=== PATIENT | male | born 1950 | race Caucasian/White ===

== ENCOUNTER 2016-11-21 11:33 | Inpatient (IN) | payer SELFPAY ==
[~2016-11-21] VITALS: Ht 185.4 cm; Wt 61.5 kg
[2016-11-21] MEDS ORDERED: methylPREDNISolone SOD SUCC 125 MG/2 ML IVP ONE (12:30)
[2016-11-21] MEDS ORDERED: ALBUTEROL/IPRATROPIUM 2.5MG/0.5MG, 3 ML NPPB ONE (12:30)
[2016-11-21] MEDS ORDERED: SODIUM CHLORIDE FLUSH 10ML SYR IVF ONE (12:30)
[2016-11-21] MEDS ORDERED: ALBUTEROL/IPRATROPIUM 2.5MG/0.5MG, 3 ML ONE (12:35)
[2016-11-21 12:45] LABS: BLOOD UREA NITROGEN 13 mg/dL (7-18)
[2016-11-21 12:58] LABS: IS PT STATUS REG ER OR PRE ER? YES
[2016-11-21] MEDS ORDERED: methylPREDNISolone SOD SUCC 125 MG/2 ML ONE (13:23)
[2016-11-21] MEDS ORDERED: SODIUM CHLORIDE 0.9% 1,000 ML IV ONE (13:50)
[2016-11-21] MEDS ORDERED: LEVOFLOXACIN/PMX 750MG/150ML 150 ML IV ONE (14:00)
[2016-11-21] MEDS ORDERED: LEVOFLOXACIN/PMX 750MG/150ML 150 ML ONE (14:01)
[2016-11-21] MEDS ORDERED: CEFTRIAXONE PMX 1GM/50ML 50 ML ONE (14:08)
[2016-11-21] MEDS ORDERED: CEFTRIAXONE PMX 1GM/50ML 50 ML IV ONE (14:30)
[2016-11-21] MEDS ORDERED: AZITHROMYCIN 500 MG in SODIUM CHLORIDE 0.9% 250 ML IV ONE (14:30)
[2016-11-21] MEDS ORDERED: SODIUM CHLORIDE 0.9% 1,000 ML IV SCH (15:27)
[2016-11-21] MEDS ORDERED: BISACODYL 10 MG SUPP PR PRN (15:30)
[2016-11-21] MEDS ORDERED: DOCUSATE 100 MG CAPSULE PO PRN (15:30)
[2016-11-21] MEDS ORDERED: OXYcodone IR 5MG TABLET PO PRN (15:30)
[2016-11-21] MEDS ORDERED: POLYETHYLENE GLYCOL 17 GM PACKET PO PRN (15:30)
[2016-11-21] MEDS ORDERED: ACETAMINOPHEN 325 MG TABLET PO PRN (15:30)
[2016-11-21] MEDS ORDERED: LORazepam 0.5MG TABLET PO PRN (16:00)
[2016-11-21] MEDS ORDERED: LORazepam 1MG TABLET PO PRN ×2 (16:00)
[2016-11-21 16:27] LABS: ASPARTATE AMINO TRANSFERASE 78 U/L (15-37); BLOOD UREA NITROGEN 12 mg/dL (7-18)
[2016-11-21] MEDS ORDERED: OMNIPAQUE 350 MG/ML, 100ML BOTTLE ONE (17:17)
[2016-11-21 19:51] LABS: BLOOD UREA NITROGEN 11 mg/dL (7-18)
[2016-11-21] MEDS: methylPREDNISolone SOD SUCC 125 MG/2 ML IVPush SCH (21:06)
[2016-11-21] MEDS: ENOXAPARIN 40 MG/0.4 ML SQ SCH (21:07)
[2016-11-21] MEDS: NICOTINE 14MG/24 HR PATCH.TD24 TD SCH (21:07)
[2016-11-21] MEDS: FAMOTIDINE 20 MG/2 ML IV SCH (21:08)
[2016-11-21] MEDS: FOLIC ACID 1 MG TABLET PO SCH (21:09)
[2016-11-21] MEDS: THIAMINE 100MG TABLET PO SCH (21:09)
[2016-11-22] LABS: BLOOD UREA NITROGEN 10 mg/dL (7-18)
[2016-11-22] MEDS: methylPREDNISolone SOD SUCC 125 MG/2 ML IVPush SCH ×4 (03:31→20:37)
[2016-11-22 04:00] VITALS: BP 157/84
[2016-11-22 04:39] LABS: ASPARTATE AMINO TRANSFERASE 55 U/L (15-37); BLOOD UREA NITROGEN 11 mg/dL (7-18)
[2016-11-22 08:00] LABS: BLOOD UREA NITROGEN 11 mg/dL (7-18)
[2016-11-22] MEDS: FAMOTIDINE 20 MG/2 ML IV SCH ×2 (08:43→20:36)
[2016-11-22] MEDS: THIAMINE 100MG TABLET PO SCH (08:43)
[2016-11-22] MEDS: FOLIC ACID 1 MG TABLET PO SCH (08:43)
[2016-11-22 11:44] LABS: BLOOD UREA NITROGEN 12 mg/dL (7-18)
[2016-11-22] MEDS ORDERED: ALBUTEROL/IPRATROPIUM 2.5MG/0.5MG, 3 ML ONE (13:34)
[2016-11-22] MEDS ORDERED: ALBUTEROL/IPRATROPIUM 2.5MG/0.5MG, 3 ML NPPB PRN (14:00)
[2016-11-22] MEDS: CEFTRIAXONE PMX 1GM/50ML 50 ML IV SCH (14:03)
[2016-11-22] MEDS: AZITHROMYCIN 500 MG in SODIUM CHLORIDE 0.9% 250 ML IV SCH (14:08)
[2016-11-22 15:56] LABS: BLOOD UREA NITROGEN 11 mg/dL (7-18)
[2016-11-22] MEDS: LORazepam 1MG TABLET PO PRN (20:36)
[2016-11-22] MEDS: ENOXAPARIN 40 MG/0.4 ML SQ SCH (20:41)
[2016-11-22] MEDS: SODIUM CHLORIDE 0.9% 1,000 ML IV SCH (20:42)
[2016-11-22] MEDS: NICOTINE 14MG/24 HR PATCH.TD24 TD SCH (20:43)
[2016-11-23] MEDS: LORazepam 1MG TABLET PO PRN ×2 (00:07→21:57)
[2016-11-23 00:52] LABS: BLOOD UREA NITROGEN 9 mg/dL (7-18)
[2016-11-23] MEDS: methylPREDNISolone SOD SUCC 125 MG/2 ML IVPush SCH ×4 (03:00→19:20)
[2016-11-23 04:39] LABS: ASPARTATE AMINO TRANSFERASE 36 U/L (15-37); BLOOD UREA NITROGEN 10 mg/dL (7-18)
[2016-11-23 05:54] VITALS: BP 171/77
[2016-11-23] MEDS ORDERED: ASPIRIN 81 MG TABLET EC PO SCH (06:00)
[2016-11-23] MEDS ORDERED: POTASSIUM PHOSPHATE 44 MEQ in SODIUM CHLORIDE 0.9% 500 ML IV ONE (09:00)
[2016-11-23] MEDS: FOLIC ACID 1 MG TABLET PO SCH (09:18)
[2016-11-23] MEDS: THIAMINE 100MG TABLET PO SCH (09:18)
[2016-11-23] MEDS: FAMOTIDINE 20 MG/2 ML IV SCH ×2 (09:18→19:21)
[2016-11-23] MEDS: SODIUM CHLORIDE 0.9% 1,000 ML IV SCH ×2 (09:34→19:20)
[2016-11-23] MEDS: CHLORDIAZEPOXIDE 25 MG CAPSULE PO SCH ×3 (10:02→19:21)
[2016-11-23] MEDS: ENALAPRILAT 1.25 MG/ML, 2ML IVPush PRN ×2 (10:55→23:16)
[2016-11-23] MEDS: AZITHROMYCIN 500 MG in SODIUM CHLORIDE 0.9% 250 ML IV SCH (15:06)
[2016-11-23] MEDS: CEFTRIAXONE PMX 1GM/50ML 50 ML IV SCH (15:06)
[2016-11-23] MEDS: NICOTINE 21 MG/24 HR PATCH.TD24 TD SCH (17:45)
[2016-11-23] MEDS: ALBUTEROL/IPRATROPIUM 2.5MG/0.5MG, 3 ML NPPB SCH ×2 (19:00→21:47)
[2016-11-23] MEDS: ENOXAPARIN 40 MG/0.4 ML SQ SCH (19:20)
[2016-11-23] MEDS: THIAMINE 100 MG, FOLIC ACID 1 MG, MVI ADULT 10 ML in SODIUM CHLORIDE 0.9% 1,000 ML IV SCH (21:12)
[2016-11-23] MEDS ORDERED: GUAIFENESIN/DM 200-20MG, 10ML UDC PO PRN (21:30)
[2016-11-23] MEDS: GUAIFENESIN/DM 100-10MG, 5ML UDC PO PRN (21:57)
[2016-11-23 21:58] LABS: BLOOD UREA NITROGEN 9 mg/dL (7-18)
[2016-11-24] MEDS: methylPREDNISolone SOD SUCC 125 MG/2 ML IVPush SCH ×4 (02:49→20:42)
[2016-11-24] MEDS: SODIUM CHLORIDE 0.9% 1,000 ML IV SCH ×2 (02:49→15:58)
[2016-11-24] MEDS: ALBUTEROL/IPRATROPIUM 2.5MG/0.5MG, 3 ML NPPB SCH ×6 (02:58→23:00)
[2016-11-24 04:52] VITALS: BP 163/85
[2016-11-24 04:52] LABS: BLOOD UREA NITROGEN 9 mg/dL (7-18)
[2016-11-24 04:57] LABS: ASPARTATE AMINO TRANSFERASE 21 U/L (15-37)
[2016-11-24] MEDS: ASPIRIN 81 MG TABLET CHEW PO SCH (10:31)
[2016-11-24] MEDS: CHLORDIAZEPOXIDE 25 MG CAPSULE PO SCH ×3 (10:31→20:42)
[2016-11-24] MEDS: FAMOTIDINE 20 MG/2 ML IV SCH ×2 (10:32→20:43)
[2016-11-24] MEDS: CEFTRIAXONE PMX 1GM/50ML 50 ML IV SCH (14:18)
[2016-11-24] MEDS: AZITHROMYCIN 500 MG in SODIUM CHLORIDE 0.9% 250 ML IV SCH (14:18)
[2016-11-24] MEDS: NICOTINE 21 MG/24 HR PATCH.TD24 TD SCH (15:58)
[2016-11-24] MEDS: ENALAPRILAT 1.25 MG/ML, 2ML IVPush PRN ×2 (16:08→19:39)
[2016-11-24] MEDS: LORazepam 1MG TABLET PO PRN (19:39)
[2016-11-24] MEDS: GUAIFENESIN/DM 100-10MG, 5ML UDC PO PRN (20:42)
[2016-11-24] MEDS: ENOXAPARIN 40 MG/0.4 ML SQ SCH (20:42)
[2016-11-24] MEDS: THIAMINE 100 MG, FOLIC ACID 1 MG, MVI ADULT 10 ML in SODIUM CHLORIDE 0.9% 1,000 ML IV SCH (20:42)
[2016-11-24] MEDS: LABETALOL 5MG/ML, 20ML IV PRN (23:10)
[2016-11-25] VITALS (13 sets, daily range): BP systolic 164–206; BP diastolic 77–102
[2016-11-25] MEDS: LORazepam 1MG TABLET PO PRN (01:02)
[2016-11-25] MEDS: ALBUTEROL/IPRATROPIUM 2.5MG/0.5MG, 3 ML NPPB SCH ×5 (02:25→21:00)
[2016-11-25] MEDS: methylPREDNISolone SOD SUCC 125 MG/2 ML IVPush SCH ×4 (03:19→22:14)
[2016-11-25] MEDS: ENALAPRILAT 1.25 MG/ML, 2ML IVPush PRN ×2 (04:47→14:29)
[2016-11-25 06:00] LABS: ASPARTATE AMINO TRANSFERASE 17 U/L (15-37); BLOOD UREA NITROGEN 8 mg/dL (7-18)
[2016-11-25] MEDS ORDERED: POTASSIUM CHLORIDE 20 MEQ TAB.ER.PRT PO ONE (08:00)
[2016-11-25] MEDS: FAMOTIDINE 20 MG/2 ML IV SCH ×2 (10:32→22:14)
[2016-11-25] MEDS: CHLORDIAZEPOXIDE 25 MG CAPSULE PO SCH ×3 (10:32→21:00)
[2016-11-25] MEDS: ASPIRIN 81 MG TABLET CHEW PO SCH (10:32)
[2016-11-25] MEDS ORDERED: POTASSIUM CHLORIDE 40 MEQ in SODIUM CHLORIDE 0.9% 500 ML IV ONE (14:30)
[2016-11-25] MEDS: CEFTRIAXONE PMX 1GM/50ML 50 ML IV SCH (14:50)
[2016-11-25] MEDS ORDERED: LORazepam 2 MG/ML, 1ML IVPush PRN (15:30)
[2016-11-25] MEDS: hydrALAzine 20 MG/ML, 1ML IV PRN (15:48)
[2016-11-25] MEDS: AZITHROMYCIN 500 MG in SODIUM CHLORIDE 0.9% 250 ML IV SCH (15:49)
[2016-11-25] MEDS: SODIUM CHLORIDE 0.9% 1,000 ML IV SCH ×2 (15:49)
[2016-11-25] MEDS ORDERED: LORazepam 1MG TABLET PO PRN ×4 (16:30)
[2016-11-25] MEDS ORDERED: LORazepam 0.5MG TABLET PO PRN (16:30)
[2016-11-25] MEDS ORDERED: LORazepam 2 MG/ML, 1ML IV PRN ×4 (16:30)
[2016-11-25] MEDS: NICOTINE 21 MG/24 HR PATCH.TD24 TD SCH (17:38)
[2016-11-25] MEDS: ENOXAPARIN 40 MG/0.4 ML SQ SCH (22:14)
[2016-11-25] MEDS: THIAMINE 100 MG, FOLIC ACID 1 MG, MVI ADULT 10 ML in SODIUM CHLORIDE 0.9% 1,000 ML IV SCH (22:54)
[2016-11-26 02:02] VITALS: BP 213/98
[2016-11-26] MEDS: hydrALAzine 20 MG/ML, 1ML IV PRN ×2 (02:13→20:08)
[2016-11-26] MEDS: ALBUTEROL/IPRATROPIUM 2.5MG/0.5MG, 3 ML NPPB SCH ×3 (06:00→15:23)
[2016-11-26 06:27] LABS: BLOOD UREA NITROGEN 11 mg/dL (7-18)
[2016-11-26] MEDS: methylPREDNISolone SOD SUCC 125 MG/2 ML IVPush SCH (06:34)
[2016-11-26 06:40] VITALS: BP 175/90
[2016-11-26] MEDS ORDERED: MAGNESIUM SULFATE PMX 2GM/50ML 50 ML IV ONE (07:30)
[2016-11-26] MEDS ORDERED: SODIUM PHOSPHATE 20 MMOL in SODIUM CHLORIDE 0.9% 500 ML IV ONE (07:30)
[2016-11-26] MEDS: methylPREDNISolone SOD SUCC 40 MG/ML IVPush SCH ×3 (10:25→21:56)
[2016-11-26] MEDS: POTASSIUM CHLORIDE 40 MEQ in SODIUM CHLORIDE 0.9% 500 ML IV SCH ×2 (10:25→21:55)
[2016-11-26] MEDS: ASPIRIN 81 MG TABLET CHEW PO SCH (10:25)
[2016-11-26] MEDS: FAMOTIDINE 20 MG/2 ML IV SCH (10:25)
[2016-11-26] MEDS: CHLORDIAZEPOXIDE 25 MG CAPSULE PO SCH ×3 (10:25→23:08)
[2016-11-26 13:41] VITALS: BP 177/94
[2016-11-26] MEDS: CEFTRIAXONE PMX 1GM/50ML 50 ML IV SCH (14:14)
[2016-11-26] MEDS ORDERED: ALBUTEROL/IPRATROPIUM 2.5MG/0.5MG, 3 ML NPPB PRN (16:00)
[2016-11-26] MEDS: LORazepam 2 MG/ML, 1ML IV PRN (16:41)
[2016-11-26] MEDS: AZITHROMYCIN 500 MG in SODIUM CHLORIDE 0.9% 250 ML IV SCH (17:40)
[2016-11-26] MEDS: NICOTINE 21 MG/24 HR PATCH.TD24 TD SCH (17:45)
[2016-11-26 18:51] VITALS: BP 202/112
[2016-11-26] MEDS: ENOXAPARIN 40 MG/0.4 ML SQ SCH (21:55)
[2016-11-26] MEDS: THIAMINE 100 MG, FOLIC ACID 1 MG, MVI ADULT 10 ML in SODIUM CHLORIDE 0.9% 1,000 ML IV SCH (21:55)
[2016-11-26 22:20] VITALS: BP 183/104
[2016-11-26] MEDS: FAMOTIDINE 20 MG TABLET PO SCH (23:08)
[2016-11-27 02:13] VITALS: BP 157/82
[2016-11-27] MEDS: methylPREDNISolone SOD SUCC 40 MG/ML IVPush SCH ×4 (04:36→22:39)
[2016-11-27 06:02] LABS: BLOOD UREA NITROGEN 17 mg/dL (7-18)
[2016-11-27 06:06] LABS: ASPARTATE AMINO TRANSFERASE 11 U/L (15-37)
[2016-11-27 06:38] VITALS: BP 174/87
[2016-11-27] MEDS: ASPIRIN 81 MG TABLET CHEW PO SCH (08:05)
[2016-11-27] MEDS: FAMOTIDINE 20 MG TABLET PO SCH ×2 (08:05→21:07)
[2016-11-27] MEDS: CHLORDIAZEPOXIDE 25 MG CAPSULE PO SCH ×3 (08:05→21:07)
[2016-11-27 08:08] VITALS: BP 160/79
[2016-11-27] MEDS ORDERED: POTASSIUM CHLORIDE 40 MEQ in SODIUM CHLORIDE 0.9% 500 ML IV SCH (09:00)
[2016-11-27] MEDS ORDERED: PHARMACY INSTRUCTION MC PRN (13:00)
[2016-11-27 13:34] VITALS: BP 167/92
[2016-11-27] MEDS: NICOTINE 21 MG/24 HR PATCH.TD24 TD SCH (16:12)
[2016-11-27] MEDS: CEFTRIAXONE PMX 1GM/50ML 50 ML IV SCH (16:12)
[2016-11-27] MEDS ORDERED: POTASSIUM CHLORIDE 40 MEQ in SODIUM CHLORIDE 0.9% 500 ML IV ONE ×2 (17:00→23:00)
[2016-11-27 19:16] VITALS: BP 176/94
[2016-11-27] MEDS: THIAMINE 100 MG, FOLIC ACID 1 MG, MVI ADULT 10 ML in SODIUM CHLORIDE 0.9% 1,000 ML IV SCH (20:15)
[2016-11-27] MEDS: ENOXAPARIN 40 MG/0.4 ML SQ SCH (21:07)
[2016-11-28] MEDS: LORazepam 2 MG/ML, 1ML IV PRN (00:44)
[2016-11-28 01:01] VITALS: BP 186/97
[2016-11-28] MEDS: hydrALAzine 20 MG/ML, 1ML IV PRN ×2 (01:07→22:53)
[2016-11-28] MEDS: methylPREDNISolone SOD SUCC 40 MG/ML IVPush SCH ×3 (04:13→21:10)
[2016-11-28] MEDS: LABETALOL 5MG/ML, 20ML IV PRN (04:16)
[2016-11-28 05:08] VITALS: BP 173/89
[2016-11-28 07:59] VITALS: BP 157/95
[2016-11-28] MEDS: ASPIRIN 81 MG TABLET CHEW PO SCH (10:21)
[2016-11-28] MEDS: MULTIVITAMIN 1 TABLET PO SCH (10:21)
[2016-11-28] MEDS: FOLIC ACID 1 MG TABLET PO SCH (10:21)
[2016-11-28] MEDS: FAMOTIDINE 20 MG TABLET PO SCH ×2 (10:22→21:10)
[2016-11-28] MEDS: CHLORDIAZEPOXIDE 25 MG CAPSULE PO SCH ×3 (10:22→21:10)
[2016-11-28] MEDS ORDERED: POTASSIUM CHLORIDE 40 MEQ in SODIUM CHLORIDE 0.9% 500 ML IV ONE (12:30)
[2016-11-28 13:59] VITALS: BP 179/64
[2016-11-28] MEDS: CEFTRIAXONE PMX 1GM/50ML 50 ML IV SCH (14:45)
[2016-11-28 15:00] VITALS: BP 179/64
[2016-11-28] MEDS: NICOTINE 21 MG/24 HR PATCH.TD24 TD SCH (16:46)
[2016-11-28] MEDS: POTASSIUM CHLORIDE 20 MEQ TAB.ER.PRT PO SCH (16:46)
[2016-11-28 20:00] VITALS: BP 183/89
[2016-11-28] MEDS: THIAMINE 100 MG, FOLIC ACID 1 MG, MVI ADULT 10 ML in SODIUM CHLORIDE 0.9% 1,000 ML IV SCH (21:10)
[2016-11-28] MEDS: ENOXAPARIN 40 MG/0.4 ML SQ SCH (21:10)
[2016-11-29 01:15] VITALS: BP 152/76
[2016-11-29 05:49] LABS: BLOOD UREA NITROGEN 16 mg/dL (7-18)
[2016-11-29 07:03] VITALS: BP 178/92
[2016-11-29] MEDS: hydrALAzine 20 MG/ML, 1ML IV PRN (07:51)
[2016-11-29] MEDS: FOLIC ACID 1 MG TABLET PO SCH (07:52)
[2016-11-29] MEDS: POTASSIUM CHLORIDE 20 MEQ TAB.ER.PRT PO SCH (07:52)
[2016-11-29] MEDS: ASPIRIN 81 MG TABLET CHEW PO SCH (07:52)
[2016-11-29] MEDS: methylPREDNISolone SOD SUCC 40 MG/ML IVPush SCH (07:52)
[2016-11-29] MEDS: FAMOTIDINE 20 MG TABLET PO SCH ×2 (07:53→21:54)
[2016-11-29] MEDS: CHLORDIAZEPOXIDE 25 MG CAPSULE PO SCH ×3 (07:53→21:54)
[2016-11-29] MEDS: MULTIVITAMIN 1 TABLET PO SCH (07:53)
[2016-11-29] MEDS ORDERED: MAGNESIUM SULFATE PMX 2GM/50ML 50 ML IV ONE (08:30)
[2016-11-29 11:01] VITALS: BP 147/79
[2016-11-29 12:31] VITALS: BP 126/81
[2016-11-29] MEDS: CEFTRIAXONE PMX 1GM/50ML 50 ML IV SCH (15:07)
[2016-11-29] MEDS: NICOTINE 21 MG/24 HR PATCH.TD24 TD SCH (16:46)
[2016-11-29 19:14] VITALS: BP 155/81
[2016-11-29] MEDS: THIAMINE 100 MG, FOLIC ACID 1 MG, MVI ADULT 10 ML in SODIUM CHLORIDE 0.9% 1,000 ML IV SCH (21:53)
[2016-11-29] MEDS: ENOXAPARIN 40 MG/0.4 ML SQ SCH (21:54)
[2016-11-30 01:27] VITALS: BP 124/75
[2016-11-30 04:49] LABS: BLOOD UREA NITROGEN 14 mg/dL (7-18)
[2016-11-30 07:40] VITALS: BP 125/68
[2016-11-30] MEDS: FOLIC ACID 1 MG TABLET PO SCH (08:40)
[2016-11-30] MEDS: MULTIVITAMIN 1 TABLET PO SCH (08:40)
[2016-11-30] MEDS: CHLORDIAZEPOXIDE 25 MG CAPSULE PO SCH ×3 (08:40→21:23)
[2016-11-30] MEDS: FAMOTIDINE 20 MG TABLET PO SCH ×2 (08:40→21:23)
[2016-11-30] MEDS: ASPIRIN 81 MG TABLET CHEW PO SCH (08:40)
[2016-11-30 12:53] VITALS: BP 134/83
[2016-11-30 14:00] VITALS: BP 115/72
[2016-11-30] MEDS: CEFTRIAXONE PMX 1GM/50ML 50 ML IV SCH (15:44)
[2016-11-30] MEDS: NICOTINE 21 MG/24 HR PATCH.TD24 TD SCH (15:52)
[2016-11-30 18:41] VITALS: BP 133/66
[2016-11-30] MEDS: ENOXAPARIN 40 MG/0.4 ML SQ SCH (21:23)
[2016-12-01 01:41] VITALS: BP 152/83
[2016-12-01 04:34] LABS: BLOOD UREA NITROGEN 18 mg/dL (7-18)
[2016-12-01 06:50] VITALS: BP 157/88
[2016-12-01] MEDS ORDERED: predniSONE 50MG TABLET PO SCH (08:00)
[2016-12-01] MEDS: FOLIC ACID 1 MG TABLET PO SCH (10:10)
[2016-12-01] MEDS: FAMOTIDINE 20 MG TABLET PO SCH ×2 (10:10→21:16)
[2016-12-01] MEDS: THIAMINE 100MG TABLET PO SCH (10:10)
[2016-12-01] MEDS: CHLORDIAZEPOXIDE 25 MG CAPSULE PO SCH (10:10)
[2016-12-01] MEDS: MULTIVITAMIN 1 TABLET PO SCH (10:10)
[2016-12-01] MEDS: ASPIRIN 81 MG TABLET CHEW PO SCH (10:10)
[2016-12-01 13:14] VITALS: BP 124/76
[2016-12-01] MEDS: CEFTRIAXONE PMX 1GM/50ML 50 ML IV SCH (14:54)
[2016-12-01] MEDS: NICOTINE 21 MG/24 HR PATCH.TD24 TD SCH (17:54)
[2016-12-01 19:12] VITALS: BP 133/81
[2016-12-01] MEDS: ENOXAPARIN 40 MG/0.4 ML SQ SCH (21:17)
[2016-12-02 01:04] VITALS: BP 138/83
[2016-12-02 07:34] VITALS: BP 135/72
[2016-12-02] MEDS: ASPIRIN 81 MG TABLET CHEW PO SCH (08:30)
[2016-12-02] MEDS: FOLIC ACID 1 MG TABLET PO SCH (08:30)
[2016-12-02] MEDS: FAMOTIDINE 20 MG TABLET PO SCH ×2 (08:31→20:03)
[2016-12-02] MEDS: MULTIVITAMIN 1 TABLET PO SCH (08:31)
[2016-12-02] MEDS: THIAMINE 100MG TABLET PO SCH (08:31)
[2016-12-02 13:04] VITALS: BP 140/70
[2016-12-02] MEDS: NICOTINE 21 MG/24 HR PATCH.TD24 TD SCH (16:53)
[2016-12-02 19:42] VITALS: BP 126/65
[2016-12-02] MEDS: ENOXAPARIN 40 MG/0.4 ML SQ SCH (20:03)
[2016-12-03 01:26] VITALS: BP 132/75
[2016-12-03 07:27] VITALS: BP 152/86
[2016-12-03] MEDS: ASPIRIN 81 MG TABLET CHEW PO SCH (08:21)
[2016-12-03] MEDS: FAMOTIDINE 20 MG TABLET PO SCH ×2 (08:21→19:53)
[2016-12-03] MEDS: FOLIC ACID 1 MG TABLET PO SCH (08:21)
[2016-12-03] MEDS: THIAMINE 100MG TABLET PO SCH (08:21)
[2016-12-03] MEDS: MULTIVITAMIN 1 TABLET PO SCH (08:21)
[2016-12-03 13:09] VITALS: BP 151/77
[2016-12-03] MEDS: NICOTINE 21 MG/24 HR PATCH.TD24 TD SCH (17:14)
[2016-12-03] MEDS: ENOXAPARIN 40 MG/0.4 ML SQ SCH (19:53)
[2016-12-03 20:00] VITALS: BP 138/78
[2016-12-04 02:39] VITALS: BP 126/77
[2016-12-04 06:54] VITALS: BP 149/83
[2016-12-04] MEDS: FAMOTIDINE 20 MG TABLET PO SCH ×2 (08:22→20:54)
[2016-12-04] MEDS: ASPIRIN 81 MG TABLET CHEW PO SCH (08:22)
[2016-12-04] MEDS: FOLIC ACID 1 MG TABLET PO SCH (08:22)
[2016-12-04] MEDS: THIAMINE 100MG TABLET PO SCH (08:22)
[2016-12-04] MEDS: MULTIVITAMIN 1 TABLET PO SCH (08:22)
[2016-12-04 13:19] VITALS: BP 136/80
[2016-12-04] MEDS: NICOTINE 21 MG/24 HR PATCH.TD24 TD SCH (17:20)
[2016-12-04 19:23] VITALS: BP 128/76
[2016-12-04] MEDS: ENOXAPARIN 40 MG/0.4 ML SQ SCH (20:54)
[2016-12-05 00:26] VITALS: BP 153/87
[2016-12-05 07:57] VITALS: BP 164/91
[2016-12-05] MEDS: FAMOTIDINE 20 MG TABLET PO SCH ×2 (08:29→21:30)
[2016-12-05] MEDS: ASPIRIN 81 MG TABLET CHEW PO SCH (08:29)
[2016-12-05] MEDS: FOLIC ACID 1 MG TABLET PO SCH (08:29)
[2016-12-05] MEDS: MULTIVITAMIN 1 TABLET PO SCH (08:29)
[2016-12-05] MEDS: THIAMINE 100MG TABLET PO SCH (08:29)
[2016-12-05 13:30] VITALS: BP 158/73
[2016-12-05] MEDS: NICOTINE 21 MG/24 HR PATCH.TD24 TD SCH (18:13)
[2016-12-05 19:12] VITALS: BP 150/82
[2016-12-05] MEDS: ENOXAPARIN 40 MG/0.4 ML SQ SCH (21:31)
[2016-12-06 03:44] VITALS: BP 170/88
[2016-12-06 08:25] VITALS: BP 163/91
[2016-12-06] MEDS: THIAMINE 100MG TABLET PO SCH (08:43)
[2016-12-06] MEDS: FAMOTIDINE 20 MG TABLET PO SCH ×2 (08:43→21:43)
[2016-12-06] MEDS: FOLIC ACID 1 MG TABLET PO SCH (08:43)
[2016-12-06] MEDS: MULTIVITAMIN 1 TABLET PO SCH (08:43)
[2016-12-06] MEDS: ASPIRIN 81 MG TABLET CHEW PO SCH (08:44)
[2016-12-06 13:38] VITALS: BP 181/93
[2016-12-06] MEDS: LABETALOL 5MG/ML, 20ML IVPush PRN (14:45)
[2016-12-06 15:55] VITALS: BP 145/81
[2016-12-06] MEDS ORDERED: AMLODIPINE 5 MG TABLET PO ONE (16:00)
[2016-12-06] MEDS: NICOTINE 21 MG/24 HR PATCH.TD24 TD SCH (17:05)
[2016-12-06 19:32] VITALS: BP 174/98
[2016-12-06 21:34] VITALS: BP 146/81
[2016-12-06] MEDS: ENOXAPARIN 40 MG/0.4 ML SQ SCH (21:43)
[2016-12-07 03:03] VITALS: BP 165/80
[2016-12-07 07:43] VITALS: BP 150/77
[2016-12-07] MEDS: ASPIRIN 81 MG TABLET CHEW PO SCH (09:16)
[2016-12-07] MEDS: FOLIC ACID 1 MG TABLET PO SCH (09:16)
[2016-12-07] MEDS: AMLODIPINE 5 MG TABLET PO SCH (09:16)
[2016-12-07] MEDS: MULTIVITAMIN 1 TABLET PO SCH (09:17)
[2016-12-07] MEDS: THIAMINE 100MG TABLET PO SCH (09:17)
[2016-12-07] MEDS: FAMOTIDINE 20 MG TABLET PO SCH ×2 (09:17→21:03)
[2016-12-07 12:51] VITALS: BP 150/83
[2016-12-07] MEDS: NICOTINE 21 MG/24 HR PATCH.TD24 TD SCH (17:03)
[2016-12-07] MEDS: ENOXAPARIN 40 MG/0.4 ML SQ SCH (21:03)
[2016-12-07 23:25] VITALS: BP 140/71
[2016-12-08 03:02] VITALS: BP 145/91
[2016-12-08 06:47] VITALS: BP 140/84
[2016-12-08] MEDS: MULTIVITAMIN 1 TABLET PO SCH (09:42)
[2016-12-08] MEDS: THIAMINE 100MG TABLET PO SCH (09:42)
[2016-12-08] MEDS: AMLODIPINE 5 MG TABLET PO SCH (09:42)
[2016-12-08] MEDS: FOLIC ACID 1 MG TABLET PO SCH (09:42)
[2016-12-08] MEDS: FAMOTIDINE 20 MG TABLET PO SCH ×2 (09:42→21:00)
[2016-12-08] MEDS: ASPIRIN 81 MG TABLET CHEW PO SCH (09:42)
[2016-12-08 12:15] VITALS: BP 127/73
[2016-12-08] MEDS: NICOTINE 21 MG/24 HR PATCH.TD24 TD SCH (17:55)
[2016-12-08 18:27] VITALS: BP 110/66
[2016-12-08] MEDS: ENOXAPARIN 40 MG/0.4 ML SQ SCH (21:00)
[2016-12-09 01:23] VITALS: BP 120/68
[2016-12-09 06:36] VITALS: BP 158/86
[2016-12-09] MEDS: AMLODIPINE 5 MG TABLET PO SCH (08:10)
[2016-12-09] MEDS: ASPIRIN 81 MG TABLET CHEW PO SCH (08:10)
[2016-12-09] MEDS: FAMOTIDINE 20 MG TABLET PO SCH ×2 (08:10→19:53)
[2016-12-09] MEDS: THIAMINE 100MG TABLET PO SCH (08:10)
[2016-12-09] MEDS: MULTIVITAMIN 1 TABLET PO SCH (08:10)
[2016-12-09] MEDS: FOLIC ACID 1 MG TABLET PO SCH (08:10)
[2016-12-09 13:02] VITALS: BP 148/68
[2016-12-09] MEDS: NICOTINE 21 MG/24 HR PATCH.TD24 TD SCH (16:21)
[2016-12-09 18:30] VITALS: BP 147/77
[2016-12-09] MEDS: ENOXAPARIN 40 MG/0.4 ML SQ SCH (19:53)
[2016-12-10 00:59] VITALS: BP 135/73
[2016-12-10 07:39] VITALS: BP 120/79
[2016-12-10] MEDS: AMLODIPINE 5 MG TABLET PO SCH (09:15)
[2016-12-10] MEDS: THIAMINE 100MG TABLET PO SCH (09:15)
[2016-12-10] MEDS: MULTIVITAMIN 1 TABLET PO SCH (09:15)
[2016-12-10] MEDS: ASPIRIN 81 MG TABLET CHEW PO SCH (09:15)
[2016-12-10] MEDS: FAMOTIDINE 20 MG TABLET PO SCH ×2 (09:15→21:00)
[2016-12-10] MEDS: FOLIC ACID 1 MG TABLET PO SCH (09:15)
[2016-12-10 13:45] VITALS: BP 164/88
[2016-12-10] MEDS: NICOTINE 21 MG/24 HR PATCH.TD24 TD SCH (18:01)
[2016-12-10 19:50] VITALS: BP 128/72
[2016-12-10] MEDS: ENOXAPARIN 40 MG/0.4 ML SQ SCH (19:54)
[2016-12-11] MEDS: LABETALOL 5MG/ML, 20ML IVPush PRN (00:56)
[2016-12-11 01:40] VITALS: BP 197/87
[2016-12-11 02:00] VITALS: BP 137/72
[2016-12-11 07:06] VITALS: BP 166/91
[2016-12-11] MEDS: ASPIRIN 81 MG TABLET CHEW PO SCH (09:09)
[2016-12-11] MEDS: AMLODIPINE 5 MG TABLET PO SCH ×2 (09:09→21:51)
[2016-12-11] MEDS: FAMOTIDINE 20 MG TABLET PO SCH ×2 (09:09→21:51)
[2016-12-11] MEDS: THIAMINE 100MG TABLET PO SCH (09:09)
[2016-12-11] MEDS: FOLIC ACID 1 MG TABLET PO SCH (09:09)
[2016-12-11] MEDS: MULTIVITAMIN 1 TABLET PO SCH (09:09)
[2016-12-11 13:15] VITALS: BP 169/78
[2016-12-11] MEDS: NICOTINE 21 MG/24 HR PATCH.TD24 TD SCH (16:34)
[2016-12-11 20:44] VITALS: BP 145/75
[2016-12-11] MEDS: ENOXAPARIN 40 MG/0.4 ML SQ SCH (21:52)
[2016-12-12 02:00] VITALS: BP 102/62
[2016-12-12 07:55] VITALS: BP 112/72
[2016-12-12] MEDS: FOLIC ACID 1 MG TABLET PO SCH (08:11)
[2016-12-12] MEDS: FAMOTIDINE 20 MG TABLET PO SCH ×2 (08:11→22:49)
[2016-12-12] MEDS: MULTIVITAMIN 1 TABLET PO SCH (08:11)
[2016-12-12] MEDS: AMLODIPINE 5 MG TABLET PO SCH ×2 (08:11→22:49)
[2016-12-12] MEDS: THIAMINE 100MG TABLET PO SCH (08:11)
[2016-12-12] MEDS: ASPIRIN 81 MG TABLET CHEW PO SCH (08:11)
[2016-12-12 13:23] VITALS: BP 135/73
[2016-12-12] MEDS: NICOTINE 21 MG/24 HR PATCH.TD24 TD SCH (18:09)
[2016-12-12 20:00] VITALS: BP 154/81
[2016-12-12] MEDS: ENOXAPARIN 40 MG/0.4 ML SQ SCH (22:49)
[2016-12-13 02:00] VITALS: BP 114/57
[2016-12-13 07:39] VITALS: BP 147/73
[2016-12-13] MEDS: ASPIRIN 81 MG TABLET CHEW PO SCH (07:45)
[2016-12-13] MEDS: FAMOTIDINE 20 MG TABLET PO SCH ×2 (07:45→21:11)
[2016-12-13] MEDS: FOLIC ACID 1 MG TABLET PO SCH (07:45)
[2016-12-13] MEDS: MULTIVITAMIN 1 TABLET PO SCH (07:45)
[2016-12-13] MEDS: THIAMINE 100MG TABLET PO SCH (07:45)
[2016-12-13] MEDS: AMLODIPINE 5 MG TABLET PO SCH ×2 (07:45→21:11)
[2016-12-13 14:00] VITALS: BP 152/76
[2016-12-13] MEDS: NICOTINE 21 MG/24 HR PATCH.TD24 TD SCH (16:41)
[2016-12-13 20:00] VITALS: BP_SYST 87
[2016-12-13] MEDS: LISINOPRIL 10 MG TABLET PO SCH (21:11)
[2016-12-13] MEDS: ENOXAPARIN 40 MG/0.4 ML SQ SCH (21:12)
[2016-12-14 02:00] VITALS: BP 110/65
[2016-12-14 07:15] VITALS: BP 111/62
[2016-12-14] MEDS: AMLODIPINE 5 MG TABLET PO SCH (09:00)
[2016-12-14] MEDS: MULTIVITAMIN 1 TABLET PO SCH (10:51)
[2016-12-14] MEDS: FAMOTIDINE 20 MG TABLET PO SCH ×2 (10:51→22:29)
[2016-12-14] MEDS: LISINOPRIL 10 MG TABLET PO SCH ×2 (10:51→22:30)
[2016-12-14] MEDS: THIAMINE 100MG TABLET PO SCH (10:51)
[2016-12-14] MEDS: ASPIRIN 81 MG TABLET CHEW PO SCH (10:51)
[2016-12-14] MEDS: FOLIC ACID 1 MG TABLET PO SCH (10:51)
[2016-12-14 12:40] VITALS: BP 157/59
[2016-12-14 20:00] VITALS: BP 131/70
[2016-12-14] MEDS: NICOTINE 21 MG/24 HR PATCH.TD24 TD SCH (22:29)
[2016-12-14] MEDS: AMLODIPINE 2.5 MG TABLET PO SCH (22:30)
[2016-12-14] MEDS: ENOXAPARIN 40 MG/0.4 ML SQ SCH (22:31)
[2016-12-15 02:00] VITALS: BP 102/55
[2016-12-15 07:56] VITALS: BP 153/76
[2016-12-15] MEDS: AMLODIPINE 2.5 MG TABLET PO SCH ×2 (08:59→20:04)
[2016-12-15] MEDS: THIAMINE 100MG TABLET PO SCH (08:59)
[2016-12-15] MEDS: ASPIRIN 81 MG TABLET CHEW PO SCH (08:59)
[2016-12-15] MEDS: FAMOTIDINE 20 MG TABLET PO SCH ×2 (08:59→20:04)
[2016-12-15] MEDS: FOLIC ACID 1 MG TABLET PO SCH (08:59)
[2016-12-15] MEDS: MULTIVITAMIN 1 TABLET PO SCH (08:59)
[2016-12-15] MEDS: LISINOPRIL 10 MG TABLET PO SCH ×2 (09:01→20:04)
[2016-12-15 14:00] VITALS: BP 117/64
[2016-12-15 20:00] VITALS: BP 129/72
[2016-12-15] MEDS: ENOXAPARIN 40 MG/0.4 ML SQ SCH (20:04)
[2016-12-15] MEDS: NICOTINE 21 MG/24 HR PATCH.TD24 TD SCH (20:04)
[2016-12-16 02:00] VITALS: BP 125/66
[2016-12-16 08:23] VITALS: BP 127/70
[2016-12-16] MEDS: AMLODIPINE 2.5 MG TABLET PO SCH ×2 (10:21→20:40)
[2016-12-16] MEDS: FAMOTIDINE 20 MG TABLET PO SCH ×2 (10:21→20:41)
[2016-12-16] MEDS: THIAMINE 100MG TABLET PO SCH (10:21)
[2016-12-16] MEDS: LISINOPRIL 10 MG TABLET PO SCH ×2 (10:21→20:41)
[2016-12-16] MEDS: FOLIC ACID 1 MG TABLET PO SCH (10:21)
[2016-12-16] MEDS: ASPIRIN 81 MG TABLET CHEW PO SCH (10:21)
[2016-12-16] MEDS: MULTIVITAMIN 1 TABLET PO SCH (10:21)
[2016-12-16 14:31] VITALS: BP 131/78
[2016-12-16 18:51] VITALS: BP 126/71
[2016-12-16] MEDS: ENOXAPARIN 40 MG/0.4 ML SQ SCH (20:41)
[2016-12-16] MEDS: NICOTINE 21 MG/24 HR PATCH.TD24 TD SCH (20:43)
[2016-12-17 02:20] VITALS: BP 137/72
[2016-12-17 07:12] VITALS: BP 132/77
[2016-12-17] MEDS: FOLIC ACID 1 MG TABLET PO SCH (08:46)
[2016-12-17] MEDS: ASPIRIN 81 MG TABLET CHEW PO SCH (08:46)
[2016-12-17] MEDS: AMLODIPINE 2.5 MG TABLET PO SCH ×2 (08:46→21:28)
[2016-12-17] MEDS: THIAMINE 100MG TABLET PO SCH (08:46)
[2016-12-17] MEDS: FAMOTIDINE 20 MG TABLET PO SCH ×2 (08:47→21:28)
[2016-12-17] MEDS: MULTIVITAMIN 1 TABLET PO SCH (08:47)
[2016-12-17] MEDS: LISINOPRIL 10 MG TABLET PO SCH ×2 (08:47→21:27)
[2016-12-17 12:50] VITALS: BP 129/82
[2016-12-17] MEDS ORDERED: NICO1PAT5 TD (16:28)
[2016-12-17] MEDS ORDERED: FOLI-17 PO (16:28)
[2016-12-17] MEDS ORDERED: LISI-167 PO (16:28)
[2016-12-17] MEDS ORDERED: MULT1TAB60 PO (16:28)
[2016-12-17] MEDS ORDERED: AMLO2.5T PO (16:28)
[2016-12-17] MEDS ORDERED: THIA100T6 PO (16:28)
[2016-12-17 20:50] VITALS: BP 144/72
[2016-12-17] MEDS: ENOXAPARIN 40 MG/0.4 ML SQ SCH (21:27)
[2016-12-17] MEDS: NICOTINE 21 MG/24 HR PATCH.TD24 TD SCH (21:27)
[2016-12-18 02:14] VITALS: BP 138/71
== END 2016-12-18 08:00 | disposition home or self-care (01) | DRG 189 ==
LOC: ED 12:10 → EDIP 13:52 → CCU 15:12 → 4EST 11-25 00:27
PROVIDERS: ADMIT Hospitalist; ATTEND Hospitalist
PROC: 02HV33Z Insertion of Infusion Device into Superior Vena Cava, Percutaneous Approach (ICD-10-PCS; principal; 2016-11-26)
PROC: B548ZZA Ultrasonography of Superior Vena Cava, Guidance (ICD-10-PCS; 2016-11-26)
DX: J96.01 Acute respiratory failure with hypoxia (principal); J18.1 Lobar pneumonia, unspecified organism; E43 Unspecified severe protein-calorie malnutrition; G93.41 Metabolic encephalopathy; E87.1 Hypo-osmolality and hyponatremia; F10.231 Alcohol dependence with withdrawal delirium; J44.1 Chronic obstructive pulmonary disease with (acute) exacerbation; J44.0 Chronic obstructive pulmonary disease with (acute) lower respiratory infection; E51.2 Wernicke's encephalopathy; Z68.1 Body mass index [BMI] 19.9 or less, adult; F17.200 Nicotine dependence, unspecified, uncomplicated; Z78.1 Physical restraint status; E87.70 Fluid overload, unspecified; R13.10 Dysphagia, unspecified; F01.50 Vascular dementia, unspecified severity, without behavioral disturbance, psychotic disturbance, mood disturbance, and anxiety; I10 Essential (primary) hypertension
CPT/HCPCS: 36415; 36569; 70450; 71010; 71275; 74000; 74230; 76700; 76937; 77001; 80048; 80053; 82040; 82565; 83605; 83735; 83880; 84100; 84145; 84443; 84484; 85025; 87040; 87081; 87324; 93005; 94640; 96374; 96375; J0456; J0696; J1650; J3411; J3480; J7620; Q9967; 92523-GN; C1751; J0360; J2060; J2920; J2930; J3475; J7030; J7040; J7050; J7512; S0028